=== PATIENT | male | born 1970 | race Caucasian/White ===

== ENCOUNTER 2020-02-15 18:14 | Emergency (ER) | payer BC ==
[~2020-02-15] VITALS: Ht 182.9 cm; Wt 102.1 kg
[2020-02-15 18:25] VITALS: BP_SYST 142
--- NOTE | 2020-02-15 18:25 | NUR ---
Patient to ER surge tent for evaluation.
--- NOTE | 2020-02-15 18:26 | NUR ---
Patient came from home for evaluation of left flank pain that radiates to the front. Patient reports eating a tuna pack at 1530 today and experiencing left flank pain after finishing it. He took a shower then vomited. Patient states the pain has resolved.
--- NOTE | 2020-02-15 19:25 | NUR ---
DR GARCIA IN TO ASSESS
--- NOTE | 2020-02-15 19:39 | NUR ---
LABS OBTAINED, PT CALM, ALERT, NAD. COMMUNICATES CLEARLY. DENIES CP SOB
[2020-02-15 19:45] LABS: BASOPHILS % (AUTO) 0.3 % (0.0-2.0); EOSINOPHILS % (AUTO) 0.4 % (0.0-4.0); HEMOGLOBIN 14.5 g/dL (14.0-18.0); LYMPHOCYTES # (AUTO) 1.3 K/uL (1.0-5.5); LYMPHOCYTES % (AUTO) 14.8 % (20.5-51.5); MEAN CORPUSCULAR HEMOGLOBIN 32 pg (27-31); MEAN CORPUSCULAR HGB CONC 34 % (32-36); MEAN CORPUSCULAR VOLUME 94 fL (79.0-98.0); MONOCYTES # (AUTO) 0.8 K/uL (0.0-1.0); MONOCYTES % (AUTO) 8.8 % (1.7-9.3); NEUTROPHILS # (AUTO) 6.8 K/uL (1.8-7.7); NEUTROPHILS % (AUTO) 75.7 % (40.0-70.0); PLATELET COUNT (AUTO) 218 K/uL (130-430); RED BLOOD CELL COUNT(AUTO) 4.57 MIL/uL (4.2-6.2); RED CELL DISTRIBUTION WIDTH 12.4 % (9.0-15.0)
[2020-02-15 19:48] LABS: CALCIUM 9.5 mg/dL (8.4-11.0); CREATININE 1.16 mg/dL (0.55-1.30); POTASSIUM 4.4 mmol/L (3.5-5.1)
[2020-02-15 19:53] LABS: ALBUMIN 4.3 g/dL (3.4-4.8); TOTAL BILIRUBIN 0.7 mg/dL (0.0-1.0)
[2020-02-15] MEDS ORDERED: NACL 0.9% 1,000 ML IV ONE (20:30)
[2020-02-15] MEDS ORDERED: KETOROLAC TROMETHAMINE 30 MG VIAL IVP ONE (20:30)
--- NOTE | 2020-02-15 21:35 | NUR ---
DR MARS IN TO ASSESS
--- NOTE | 2020-02-15 21:58 | NUR ---
Patient given written and verbal discharge instructions and verbalizes understanding. ER MD discussed with patient the results and treatment provided. Patient in stable condition. ID arm band removed. IV catheter removed intact and dressing applied, no active bleeding. Rx of FLOMAX given. Patient educated on pain management and to follow up with PMD. Pain Scale 2/10 Opportunity for questions provided and answered. Medication side effect fact sheet provided.
[2020-02-15 21:59] VITALS: BP_SYST 131
== END 2020-02-15 21:59 | disposition home or self-care (01) ==
LOC: SED 18:14
DX: N20.0 Calculus of kidney (principal); R11.10 Vomiting, unspecified
CPT/HCPCS: 36415; 74176; 80053; 81002; 85025; 96361; 96374; 99284; J1885; J7030